=== PATIENT | female | born 1995 | race Caucasian/White ===

== ENCOUNTER 2017-12-17 15:26 | Emergency (ER) | payer OTHER ==
[2017-12-17 15:30] VITALS: TEMP 99.2; BMI 20.7
[2017-12-17 16:57] LABS: HCG,QUALITATIVE URINE NEGATIVE
[2017-12-17 17:11] LABS: URINE APPEARANCE CLEAR; URINE BILIRUBIN NEGATIVE (<2.0 mg/dL); URINE BLOOD NEGATIVE (NEGATIVE); URINE COLOR STRAW; URINE GLUCOSE (UA) NEGATIVE (NEGATIVE); URINE KETONE 1+ (NEGATIVE); URINE NITRITE NEGATIVE (NEGATIVE); URINE PROTEIN NEGATIVE (NEGATIVE); URINE UROBILINOGEN NEGATIVE mg/dL (0.2-1.0)
[2017-12-17 17:12] LABS: URINE LEUK ESTERASE 1+ (NEGATIVE)
[2017-12-17 17:16] LABS: EPI CELLS RARE /HPF (FEW); URINE BACTERIA MANY /hpf (NONE SEEN); URINE HYALINE CAST 1 /lpf
[2017-12-17] MEDS ORDERED: KETOROLAC TROMETHAMINE 30 MG/1 ML VIAL IVPUSH ONE (17:20)
[2017-12-17] MEDS ORDERED: METOCLOPRAMIDE HCL INJECTION 10 MG/2 ML VIAL IVPB ONE (17:20)
[2017-12-17] MEDS ORDERED: SODIUM CHLORIDE 1,000 ML IV STA (17:24)
--- NOTE | 2017-12-17 17:24 | PDOC ---
History of Present Illness - General Chief Complaint: Pain Stated Complaint: ABD PAIN, NAUSEA Time Seen by Provider: 12/17/17 16:38 History Source: Patient - History of Present Illness Timing/Duration: reports: constant, getting worse Quality: reports: severe Abdominal Pain Onset Location: reports: suprapubic Past History - Past Medical History Allergies/Adverse Reactions: Allergies Allergy/AdvReac Type Severity Reaction Status Date / Time No Known Allergies Allergy Verified 12/17/17 15:30 Home Medications: Ambulatory Orders Levofloxacin [Levaquin] 750 mg PO DAILY #7 tablet 12/17/17 metroNIDAZOLE [Flagyl -] 500 mg PO TID #21 tablet 12/17/17 COPD: No - Suicide/Smoking/Psychosocial Hx Smoking History: Never smoked Information on smoking cessation initiated: No Hx Alcohol Use: No Drug/Substance Use Hx: No Substance Use Type: None Review of Systems - Review of Systems Constitutional: No: Chills, Fever ABD/GI: Yes: Nausea, Abdominal cramping. No: Constipated, Diarrhea, Vomiting : No: Burning, Dysuria, Flank Pain, Hematuria *Physical Exam - Vital Signs Last Vital Signs Temp Pulse Resp BP Pulse Ox 99.2 F 115 H 18 110/69 100 12/17/17 15:28 12/17/17 15:28 12/17/17 15:28 12/17/17 15:28 12/17/17 15:28 - Physical Exam General Appearance: Yes: Appropriately Dressed. No: Apparent Distress HEENT: positive: Normal Voice Neck: positive: Supple Respiratory/Chest: negative: Respiratory Distress Female Pelvic Exam: positive: normal external exam, normal adnexa, discharge ( moderate amount of thin watery light yellow discharge). negative: CMT, lesions , vaginal bleeding Gastrointestinal/Abdominal: positive: Normal Bowel Sounds, Tender (to RLQ w/ + rebound), Soft, Rebound, Tenderness. negative: Distended, Guarding Musculoskeletal: negative: CVA Tenderness Extremity: positive: Normal Inspection Integumentary: positive: Dry, Warm Neurologic: positive: Fully Oriented, Alert, Normal Mood/Affect ED Treatment Course - LABORATORY CBC & Chemistry Diagram: 12/17/17 17:23 12/17/17 17:23 - ADDITIONAL ORDERS Additional order review: Laboratory Results 12/17/17 16:44 Urine Color Straw Urine Appearance Clear Urine pH 7.0 Ur Specific [place] 1.005 Urine Protein Negative Urine Glucose (UA) Negative Urine Ketones 1+ H Urine Blood Negative Urine Nitrite Negative Urine Bilirubin Negative Urine Urobilinogen Negative Ur Leukocyte Esterase 1+ H Urine WBC (Auto) 23 Urine RBC (Auto) 1 Ur Epithelial Cells Rare Urine Bacteria Many Hyaline Casts 1 Urine HCG, Qual Negative Medical Decision Making - Medical Decision Making 12/17/17 17:20 21-year-old female, no significant history here with pelvic pain. Patient reports cramping since yesterday that is constant and getting worse with nausea , no vomiting. Denies vaginal discharge, itching, odor, dysuria, change in bowel movements, fever or chills. No history of cyst or fibroids. Last menstrual period one week ago and was normal. No history of similar pain. See exam R/o appy vs UTI, less likely PID (as no cmt/adnexal), unlikely torsion Tachy w/ T of 99F w/ +ttp to RLQ w/ rebound Preg test neg -pain control -zofran -IVF -labs -CT 12/17/17 19:01 Signed out to PAM Gupta pending CTA 12/17/17 19:02 *DC/Admit/Observation/Transfer Diagnosis at time of Disposition: Regional enteritis of ileum, UTI (urinary tract infection) - Discharge Dispostion Disposition: HOME Condition at time of disposition: Stable - Prescriptions Prescriptions: Levofloxacin [Levaquin] 750 mg PO DAILY #7 tablet metroNIDAZOLE [Flagyl -] 500 mg PO TID #21 tablet - Referrals Referrals: Ernesto Wise MD [Staff Physician] - - Patient Instructions Printed Discharge Instructions: Inflammatory Bowel Disease, DI for Urinary Tract Infection (UTI) Additional Instructions: Please take medications as prescribed and complete the entire course of antibiotics even if your symptoms improve. Please follow up with gastroenterology within the next 1-2 weeks as discussed. If you develop any fever, persistent vomiting, vaginal bleeding, worsening pain, or any new or worsening symptoms, please return to the ER. - Post Discharge Activity
[2017-12-17] MEDS ORDERED: METOCLOPRAMIDE HCL INJECTION 10 MG/2 ML VIAL ONE (17:36)
[2017-12-17] MEDS ORDERED: KETOROLAC TROMETHAMINE 30 MG/1 ML VIAL ONE (17:36)
[2017-12-17 17:39] LABS: BASO % 0.3 % (0-2.0); EOS % 0.1 % (0-4.5); HEMATOCRIT 38.3 % (32.4-45.2); LYMPH % 8.7 % (8-40); MCH 29.1 pg (25.7-33.7); MEAN CELL VOLUME 85.8 fl (80-96); MONO % 5.2 % (3.8-10.2); NEUT % 85.7 % (42.8-82.8); PLATELET COUNT 229 K/MM3 (134-434); RBC 4.46 M/mm3 (3.60-5.2); RDW 12.9 % (11.6-15.6); WHITE BLOOD COUNT 15.6 K/mm3 (4.0-10.0)
[2017-12-17 18:11] LABS: ALBUMIN 3.8 g/dl (3.4-5.0); ANION GAP 8 (8-16); BLOOD UREA NITROGEN 8 mg/dL (7-18); CALCIUM 8.6 mg/dL (8.5-10.1); CHLORIDE 105 mmol/L (98-107); CO2 25 mmol/L (21-32); GLUCOSE,RANDOM 90 mg/dL (74-106); POTASSIUM 3.6 mmol/L (3.5-5.1); SGOT/AST 13 U/L (15-37); SGPT/ALT 14 U/L (12-78); SODIUM 138 mmol/L (136-145)
[2017-12-17 18:14] LABS: ALK PHOS 65 U/L (45-117); BILIRUBIN,TOTAL 2.3 mg/dL (0.2-1.0); CREATININE 0.6 mg/dL (0.55-1.02); TOT PROT 7.1 g/dl (6.4-8.2)
--- NOTE | 2017-12-17 19:56 | PDOC ---
*Physical Exam - Vital Signs Last Vital Signs Temp Pulse Resp BP Pulse Ox 99.2 F 115 H 18 110/69 100 12/17/17 15:28 12/17/17 15:28 12/17/17 15:28 12/17/17 15:28 12/17/17 15:28 - Physical Exam Comments: 12/17/17 19:56 Sign-out received from outgoing ER provider Davon. Pt interviewed and examined. Ancillary studies reviewed. Patient currently denies any nausea/vomiting, denies pain but continues to have TTP to RLQ. Awaiting CT results. ED Treatment Course - LABORATORY CBC & Chemistry Diagram: 12/17/17 17:23 12/17/17 17:23 - ADDITIONAL ORDERS Additional order review: Laboratory Results 12/17/17 12/17/17 17:23 16:44 Sodium 138 Potassium 3.6 Chloride 105 Carbon Dioxide 25 Anion Gap 8 BUN 8 Creatinine 0.6 Creat Clearance w eGFR > 60 Random Glucose 90 Calcium 8.6 Total Bilirubin 2.3 H AST 13 L ALT 14 Alkaline Phosphatase 65 Total Protein 7.1 Albumin 3.8 Urine Color Straw Urine Appearance Clear Urine pH 7.0 Ur Specific [place] 1.005 Urine Protein Negative Urine Glucose (UA) Negative Urine Ketones 1+ H Urine Blood Negative Urine Nitrite Negative Urine Bilirubin Negative Urine Urobilinogen Negative Ur Leukocyte Esterase 1+ H Urine WBC (Auto) 23 Urine RBC (Auto) 1 Ur Epithelial Cells Rare Urine Bacteria Many Hyaline Casts 1 Urine HCG, Qual Negative 12/17/17 17:23 RBC 4.46 MCV 85.8 MCHC 34.0 RDW 12.9 MPV 7.0 L Neutrophils % 85.7 H Lymphocytes % 8.7 Monocytes % 5.2 Eosinophils % 0.1 Basophils % 0.3 - Medications Given in the ED: ED Medications Discontinued Medications Generic Name Dose Route Start Last Admin Trade Name Freq PRN Reason Stop Dose Admin Sodium Chloride 1,000 mls @ 1,000 mls/hr 12/17/17 17:24 12/17/17 17:41 Normal Saline - IV 12/17/17 18:23 1,000 mls/hr ASDIR STA Administration Ketorolac Tromethamine 30 mg 12/17/17 17:20 12/17/17 17:41 Toradol Injection - IVPUSH 12/17/17 17:21 30 mg ONCE ONE Administration Metoclopramide HCl 10 mg 12/17/17 17:20 12/17/17 17:41 Reglan Injection - IVPB 12/17/17 17:21 10 mg ONCE ONE Administration *DC/Admit/Observation/Transfer Diagnosis at time of Disposition: Regional enteritis of ileum Qualifiers: Digestive disease complication type: unspecified complication Qualified Code(s) : K50.019 - Crohn's disease of small intestine with unspecified complications UTI (urinary tract infection) Qualifiers: Urinary tract infection type: site unspecified Hematuria presence: without hematuria Qualified Code(s): N39.0 - Urinary tract infection, site not specified - Discharge Dispostion Disposition: HOME Condition at time of disposition: Stable Admit: No - Prescriptions Prescriptions: Levofloxacin [Levaquin] 750 mg PO DAILY #7 tablet metroNIDAZOLE [Flagyl -] 500 mg PO TID #21 tablet - Referrals Referrals: Ernesto Wise MD [Staff Physician] - - Patient Instructions Printed Discharge Instructions: Inflammatory Bowel Disease, DI for Urinary Tract Infection (UTI) Additional Instructions: Please take medications as prescribed and complete the entire course of antibiotics even if your symptoms improve. Please follow up with gastroenterology within the next 1-2 weeks as discussed. If you develop any fever, persistent vomiting, vaginal bleeding, worsening pain, or any new or worsening symptoms, please return to the ER. - Post Discharge Activity
[2017-12-17] MEDS ORDERED: NITROFURANTOIN MACROCRYSTAL 50 MG CAPSULE (FP) PO SCH (21:15)
[2017-12-18 00:09] VITALS: BP 96/60; PULSE 82
== END 2017-12-18 00:09 | disposition home or self-care (01) ==
LOC: JER 15:26
PROC: 3E0337Z Introduction of Electrolytic and Water Balance Substance into Peripheral Vein, Percutaneous Approach (ICD-10-PCS; principal; 2017-12-17)
PROC: 3E0333Z Introduction of Anti-inflammatory into Peripheral Vein, Percutaneous Approach (ICD-10-PCS; 2017-12-17)
PROC: 3E033GC Introduction of Other Therapeutic Substance into Peripheral Vein, Percutaneous Approach (ICD-10-PCS; 2017-12-17)
DX: K50.019 Crohn's disease of small intestine with unspecified complications (principal); N39.0 Urinary tract infection, site not specified
CPT/HCPCS: 36415; 74177-TC; 76830-TC; 80053; 81003; 81015; 84703; 85025; 96361; 96374; 96375; 99283-25; J7030